=== PATIENT | female | born 1970 | race Caucasian/White ===

== ENCOUNTER → 2017-01-30 | Outpatient (CLI) | payer OTHER ==
[~2017-01-30] MED LIST: ALLEGRA180 MG PO; ORTHO-CYCLEN1 EACH; PROAIR HFA8.5 GM
== END ==
LOC: RAD 14:10
DX: Z12.31 Encounter for screening mammogram for malignant neoplasm of breast (principal)

== ENCOUNTER → 2018-01-23 | Outpatient (CLI) | payer OTHER | LOC: RAD 12:25 | DX: Z12.31 Encounter for screening mammogram for malignant neoplasm of breast (principal) ==

== ENCOUNTER → 2018-01-27 | Outpatient (CLI) | payer OTHER | LOC: ULTRA 14:39 | DX: N60.02 Solitary cyst of left breast (principal); N60.01 Solitary cyst of right breast ==